=== PATIENT | male | born 1990 | race African-American/Black ===

== ENCOUNTER 2023-01-26 12:52 | Emergency (ER) | payer OTHER ==
[~2023-01-26] VITALS: Ht 182.9 cm; Wt 59.0 kg
== END 2023-01-26 14:05 | disposition home or self-care (01) ==
LOC: ER 12:52
DX: S61.421A Laceration with foreign body of right hand, initial encounter (principal); W45.8XXA Other foreign body or object entering through skin, initial encounter; W21.09XA Struck by other hit or thrown ball, initial encounter; Y92.832 Beach as the place of occurrence of the external cause